=== PATIENT | female | born 1995 | race Caucasian/White ===

== ENCOUNTER 2024-07-11 13:06 | Outpatient (REF) | payer OTHER, SELFPAY ==
[2024-07-11 16:40] LABS: ALT 20 U/L (14-59); AST 13 U/L (15-37); Alkaline Phosphatase 47 U/L (46-116); Anion Gap 11.1 mmol/L (3-11); BUN 9 mg/dL (7-18); Bilirubin, Total 0.38 mg/dL (0.2-1.0); CO2 26.9 mmol/L (21.0-32.0); CREATININE 0.9 mg/dL (0.55-1.02); Chloride 107 mmol/L (98-107); Estimated GFR 87.65 (mL/min/1.73m2); Glucose 93 mg/dL (74-106); Potassium 4.4 mmol/L (3.5-5.1); Sodium 145 mmol/L (136-145); TSH (W/Ref FT4) 2.29 uIU/mL (0.36-3.74); Total Protein 7.1 g/dL (6.4-8.2)
== END 2024-07-11 13:07 | disposition home or self-care (01) ==
LOC: LBN 13:06
PROVIDERS: PCP Nurse Practitioner Family; Visit Provider Nurse Practitioner Family
DX: F90.9 Attention-deficit hyperactivity disorder, unspecified type (principal); F41.1 Generalized anxiety disorder; Z23 Encounter for immunization
CPT/HCPCS: 80053; 84443

== ENCOUNTER 2025-01-14 12:26 | Outpatient (REF) | payer OTHER, SELFPAY ==
--- NOTE | 2025-01-14 13:30 | SKI_PTH ---
PATIENT: Francisca Cortez LOC: [facility] U#:[id number] AGE/SX: 29/F ROOM: RE01/14/[address]: Madison Conner NP : 1995 BED: DIS: 01/14/2025 SPEC #: [id number] RECD: 01/15/25 12:45 STATUS: CHAVA REFarrukh #: [id number] JAMES: 01/14/25 13:[address]: Madison Conner DEPT: Surgical Specimen RECD BY: Clara Marcum ENTERED: 01/15/25 12:45 SP TYPE: ROB MOSES DR: Juan Call, ANOOP Tissues: 1 - SKIN BIOPSY(SHAVE/PUNCH) Procedures: SKIN LEVEL 4 Comments: [id number]
== END 2025-01-14 12:27 | disposition home or self-care (01) ==
LOC: LBN 12:26
PROVIDERS: PCP Nurse Practitioner Family; Visit Provider Nurse Practitioner Family
DX: L98.9 Disorder of the skin and subcutaneous tissue, unspecified (principal); D22.9 Melanocytic nevi, unspecified
CPT/HCPCS: 88305

== ENCOUNTER 2025-07-10 10:23 | Outpatient (REF) | payer OTHER, SELFPAY ==
--- NOTE | 2025-07-10 12:35 | PAPFT_PTH ---
PATIENT: Francisca Cortez LOC: [facility] U#:[id number] AGE/SX: 30/F ROOM: RE07/10/[address]: Juan Call DNP : 1995 BED: DIS: 07/10/2025 SPEC #: [id number] RECD: 07/12/25 11:37 STATUS: CHAVA REFarrukh #: [id number] JAMES: 07/10/25 12:[address]: Juan Valdivia DEPT: [facility] Cytology RECD BY: Hyacinth Her Tissues: 1 - CX/ENDOCX FOR PAP SMEARS Procedures: PAP THIN PREP/[facility] Screening HPV DNA PROBE Comments: [id number] (HPV 16 & 18/45) (CHLAMYDIA/GC)
[2025-07-13 14:10] LABS: Chlamydia Result Negative (Negative); GC Result Negative (Negative)
== END 2025-07-10 10:24 | disposition home or self-care (01) ==
LOC: LBN 10:23
PROVIDERS: PCP Nurse Practitioner Family; Visit Provider Nurse Practitioner Family
DX: Z12.4 Encounter for screening for malignant neoplasm of cervix (principal)
CPT/HCPCS: 87491; 87591; 88142; 87624